=== PATIENT | female | born 1955 | race Caucasian/White ===

== ENCOUNTER 2017-11-11 17:57 | Emergency (ER) | payer SELFPAY ==
[~2017-11-11] VITALS: Ht 162.6 cm; Wt 61.2 kg
[2017-11-11 18:03] VITALS: BP 151/80
[2017-11-11] MEDS ORDERED: ALBUTEROL FS 2.5 MG/3 ML VIAL.NEB ONE (18:21)
[2017-11-11] MEDS: ALBUTEROL FS 2.5 MG/3 ML VIAL.NEB NEB ONE (18:25)
== END 2017-11-11 19:40 | disposition home or self-care (01) ==
LOC: ER 17:58
DX: B34.9 Viral infection, unspecified (principal); J20.9 Acute bronchitis, unspecified; F32.9 Major depressive disorder, single episode, unspecified
CPT/HCPCS: 71045-TC; 87400; A4606; Z7610

== ENCOUNTER 2019-05-04 18:40 | Emergency (ER) | payer OTHER ==
[~2019-05-04] VITALS: Ht 160 cm; Wt 77.1 kg
--- NOTE | 2019-05-04 19:51 | NUR ---
BIBS. C/O "BEEN HAVING COUGH FOR AROUND X2 WEEKS, AND A WORSENING SHORTNESS OF BREATH" AOX4. AMBULATORY. PT VSS.
[2019-05-04] MEDS: ALBUTEROL FS 2.5 MG/3 ML VIAL.NEB NEB ONE (20:01)
[2019-05-04] MEDS: IPRATROPIUM NEB FS 0.5 MG/2.5 ML AMPUL.NEB NEB ONE (20:01)
[2019-05-04] MEDS ORDERED: IPRATROPIUM NEB FS 0.5 MG/2.5 ML AMPUL.NEB ONE (20:05)
[2019-05-04] MEDS ORDERED: ALBUTEROL FS 2.5 MG/3 ML VIAL.NEB ONE (20:05)
--- NOTE | 2019-05-04 21:02 | NUR ---
Patient discharged to home in stable condition. Written and verbal after care instructions given. Patient verbalizes understanding of instruction.Pt ambulatory with a steady gait
[2019-05-04 21:03] VITALS: BP 147/88
== END 2019-05-04 21:03 | disposition home or self-care (01) ==
LOC: ER 18:41
DX: J45.909 Unspecified asthma, uncomplicated (principal); F32.9 Major depressive disorder, single episode, unspecified; Z87.891 Personal history of nicotine dependence
CPT/HCPCS: 71045-TC

== ENCOUNTER 2019-07-26 20:47 | Emergency (ER) | payer OTHER ==
[~2019-07-26] VITALS: Ht 162.6 cm; Wt 77.1 kg
[2019-07-26 20:55] VITALS: BP 136/63
[2019-07-26] MEDS ORDERED: IPRATROPIUM NEB FS 0.5 MG/2.5 ML AMPUL.NEB NEB ONE (21:30)
[2019-07-26] MEDS ORDERED: ALBUTEROL FS 2.5 MG/3 ML VIAL.NEB NEB ONE (21:30)
[2019-07-26] MEDS ORDERED: IPRATROPIUM NEB FS 0.5 MG/2.5 ML AMPUL.NEB ONE (21:36)
[2019-07-26] MEDS ORDERED: ALBUTEROL FS 2.5 MG/3 ML VIAL.NEB ONE (21:36)
== END 2019-07-26 22:10 | disposition home or self-care (01) ==
LOC: ER 20:47
DX: J45.909 Unspecified asthma, uncomplicated (principal); F32.9 Major depressive disorder, single episode, unspecified